=== PATIENT | female | born 1990 | race Caucasian/White ===

== ENCOUNTER 2020-12-08 10:08 | Emergency (ER) | payer OTHER, SELFPAY ==
--- NOTE | ~2020-12-08 | XR_ITS ---
EXAMINATION: XR ankle RT min 3V DATE: 12/08/2020 10:52 INDICATION: Right ankle pain. TECHNIQUE: 4 views of right ankle were obtained. COMPARISON: None. FINDINGS: Bone alignment is normal. No acute fracture. There is heterotopic ossification distal to la teral malleolus from old injury. Joint spaces are normal. IMPRESSION: 1. No acute fracture. Reviewed, dictated and finalized at location B. /ENDANGERED SPECIES SPECIALIST IMPRESSION: 1. No acute fracture.
--- NOTE | ~2020-12-08 | XR_ITS ---
EXAMINATION: XR foot RT min 3V DATE: 12/08/2020 10:52 INDICATION: Right foot injury and pain. TECHNIQUE: 4 views of right foot were obtained. COMPARISON: None. FINDINGS: There is moderate hallux valgus. No fracture. There is mild midfoot osteoarthritis. IMPRESSION: 1. Moderate hallux valgus. 2. Mild midfoot osteoarthritis. Reviewed, dictated and finalized at location B. DING TECHNICIAN
[2020-12-08 10:23] VITALS: BP 152/67; PULSE 92; RESP 20; TEMP 36.9; O2SAT 100
--- NOTE | 2020-12-08 10:24 | ED.LOWEXIN ---
HPI - Extremity Injury (Lower) General Chief Complaint: Extremity Injury, Lower Stated Complaint: Extremity Injury, Lower Time Seen by Provider: 12/08/20 10:25 Source: patient and RN notes reviewed History of Present Illness HPI Narrative: Patient is a 30-year-old female who presents the urgent care with complaints of right foot and ankle pain. 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 Patient states that the client ended up in the emergency room due to hitting her head. Patient states that she is unsure if the walker also folded on her right foot. Patient is complaining of right foot and right ankle pain. Denies of any other injuries from the fall. Denies of hitting her head. Patient states that she has fractured the right foot/ankle in the past. Denies of any use of pain medication prior to arrival. No other acute complaints. No acute distress noted. Patient aware of the plan of care. Some parts of this dictation were generated by voice recognition software and may contain typographical and/or grammatical inaccuracies. Related Data Home Medications Medication Instructions Recorded Confirmed clonazepam 0.5 mg PO DAILY 12/08/20 12/08/20 sertraline 75 mg PO DAILY 12/08/20 12/08/20 Allergies Allergy/AdvReac Type Severity Reaction Status Date / Time hydroxyzine Allergy Unknown Other Verified 12/08/20 10:35 nitrofurantoin Allergy Unknown hives Verified 12/08/20 10:35 shellfish derived Allergy Unknown Rash Verified 12/08/20 10:35 Review of Systems Review of Systems: Narrative: CONSTITUTIONAL: Denies fever, chills, or sweats. EYES: Denies visual changes, redness, or discharge. ENT: Denies rhinorrhea, congestion, sore throat, or otalgia. CARDIOVASCULAR: Denies chest pain, palpitations, or edema. RESPIRATORY: Denies cough or dyspnea. GASTROINTESTINAL: Denies abdominal pain, nausea, vomiting, or diarrhea. GENITOURINARY: Denies dysuria or hematuria. SKIN: Denies rash or itching. MUSCULOSKELETAL: Reports of right foot and ankle pain with right ankle swelling NEUROLOGIC: Denies headache, numbness, or weakness. All other systems reviewed are negative, except as documented in HPI. PMFSH Comments At the time of my signature, I reviewed and agree with the nursing past medical, surgical, social, and family history. There is no relevant family history pertinent to the patient complaint. Exam Narrative: Exam Narrative: GENERAL: This is a well-nourished, well-developed patient, in no apparent distress. HEAD: normocephalic, atraumatic. EYES: PERRL. Sclera clear/white. Vision is grossly intact. EARS: External ears normal NOSE: External nose normal with no obvious nasal discharge, nares without redness, no rhinorrhea. THROAT: Mucous membranes moist NECK: Neck supple SKIN: warm, intact with no suspicious lesions or rash, good texture and turgor. NEURO: awake, alert, and oriented to person, place and time. There were no obvious focal neurologic abnormalities. EXTREMITIES: Moderate edema/mild edema noted to lateral malleolus with moderate tenderness. Moderate tenderness/ecchymosis to the dorsal lateral aspect of the right foot. Positive strong right pedal pulse with capillary refill less than 2 seconds. Range of motion not tested due to pain. Reported pain exacerbated with any flexion or weightbearing Course Vital Signs Vital signs: Vital Signs Temperature 98.4 F 12/08/20 10:23 Pulse Rate 92 12/08/20 10:23 Respiratory Rate 20 12/08/20 10:23 Blood Pressure 152/67 H 12/08/20 10:23 Pulse Oximetry 100 12/08/20 10:23 Temperature 98.4 F 12/08/20 10:23 Pulse Rate 92 12/08/20 10:23 Respiratory Rate 20 12/08/20 10:23 Blood Pressure 152/67 H 12/08/20 10:23 Pulse Oximetry 100 12/08/20 10:23 Reviewed-patient is informed that they may have pre-hypertension or hypertension based on a blood pressure reading in the depa
== END 2020-12-08 11:15 | disposition home or self-care (01) ==
PROVIDERS: Emergency Provider Nurse Practitioner Family
DX: S93.401A Sprain of unspecified ligament of right ankle, initial encounter (principal); S96.911A Strain of unspecified muscle and tendon at ankle and foot level, right foot, initial encounter; W50.0XXA Accidental hit or strike by another person, initial encounter; Y99.0 Civilian activity done for income or pay; S90.31XA Contusion of right foot, initial encounter; F41.9 Anxiety disorder, unspecified; F32.9 Major depressive disorder, single episode, unspecified
CPT/HCPCS: 73610; 73630; 99213; G0463

== ENCOUNTER 2022-03-02 08:30 | Emergency (ER) | payer OTHER, SELFPAY ==
--- NOTE | ~2022-03-02 | XR_ITS ---
EXAMINATION: XR ankle LT min 3V EXAM DATE: 03/02/2022 09:00 INDICATION: Inversion Injury,Dorsal Lateral Tarsal Pain. TECHNIQUE: Left ankle frontal, lateral and oblique projections obtained and reviewed. There is no pr ior study for comparison. FINDINGS: The left ankle mortise appears intact. There are no acute fractures or dislocations ident ified. There is no subcutaneous gas. The soft tissue is unremarkable. There are no radiopaque for eign bodies. Mild left ankle osteoarthritis. IMPRESSION: No acute osseous findings. Reviewed, dictated and finalized at location B. IMPRESSION: No acute osseous findings.
[2022-03-02 08:47] VITALS: BP 121/74; PULSE 83; RESP 14; TEMP 36.8; O2SAT 100
--- NOTE | 2022-03-02 08:58 | ED.LOWEXIN ---
HPI - Extremity Injury (Lower) General Chief Complaint: Extremity Injury, Lower Stated Complaint: Left ankle injury Time Seen by Provider: 03/02/22 09:16 Source: patient and RN notes reviewed Mode of arrival: ambulatory Limitations: no limitations History of Present Illness HPI Narrative: 31-year-old female presents with concern for left ankle pain. Reports last week on she twisted the ankle. Reports she went to the emergency room where they did an x-ray that was negative. Reports she was using a brace given her by the emergency room that made the pain worse. Reports over the weekend she was walking on the ankle and the pain has since been worsening. She denies redness, warmth. Reports pain at rest. Reports pain worsening with flexion and extension of the ankle and weightbearing. She denies open skin rash. MD complaint: ankle injury Related Data Home Medications Medication Instructions Recorded Confirmed clonazepam 0.5 mg PO DAILY 12/08/20 12/08/20 sertraline [Zoloft] 50 mg PO DAILY 03/02/22 03/02/22 Allergies Allergy/AdvReac Type Severity Reaction Status Date / Time hydroxyzine Allergy Unknown Other Verified 03/02/22 09:14 nitrofurantoin Allergy Unknown hives Verified 03/02/22 09:14 shellfish derived Allergy Unknown Rash Verified 03/02/22 09:14 Review of Systems Review of Systems: CONSTITUTIONAL: Denies malaise, chills, sweats, or fever. SKIN: Denies rash or itching, open skin, laceration, abrasion, redness, warmth MUSCULOSKELETAL: Reports left ankle swelling and pain NEUROLOGIC: Denies numbness, weakness All systems reviewed & are unremarkable except as noted in HPI and below PMFSH Comments At time of signature, agree with nursing past medical, surgical, social and family history. There is no relevant family history pertinent to the presenting complaint Exam Narrative: GENERAL: Well-appearing, well-nourished, and in no acute distress. HEAD: Normocephalic, atraumatic. EYES: PERRLA, conjunctivae clear NECK: Supple. CHEST: Speaks in full sentences. No respiratory distress. HEART: Regular rate and rhythm. Normal and equal peripheral pulses. EXTREMITIES: Left ankle, foot, digits have normal strength and sensation, normal range of motion. Mild lateral edema, no ecchymosis. 5/5 strength with ankle and digit flexion and extension. Normal sensation with sensitivity to light touch and pain. Lateral tenderness. No open wounds, no skin tenting, no devitalized tissue or atrophy, no trophic changes, no obvious deformity, alignment normal, nearby joints and structures intact. Distal pulses palpable and equal bilaterally, skin warm, dry, pink. Capillary refill less than 3 seconds. SKIN: Warm, dry, no rash. NEURO: Alert and oriented x3. PSYCH: Normal mood and affect Course Course Emergency Course: Patient is aware of diagnosis, understands and agrees to treatment plan. Anticipatory guidance given. Patient agrees to follow-up as directed and is aware of reasons to seek care at the emergency department. Portions of this record may have been created with voice recognition software Level of Care: Express Care Visit Vital Signs Vital signs: Reviewed. MDM - Extremity Injury (Lower) MDM Narrative Medical decision making narrative: Patients injury and pain is consistent with musculoskeletal etiology. No signs of neurological or vascular compromise on exam. Compartments and tissues are soft without signs of compartment syndrome. Pain is felt appropriate for further evaluation on an outpatient basis. Imaging Data My impression: Images reviewed, interpreted by radiologist, agree, see report. Radiologist's impression: EXAMINATION: XR ankle LT min 3V EXAM DATE: 03/02/2022 09:00 INDICATION: Inversion Injury,Dorsal Lateral Tarsal Pain. TECHNIQUE: Left ankle frontal, lateral and oblique projections obtained and reviewed. There is no prior study for comparison. FINDINGS: The left ankle mortise appears intact. There are
== END 2022-03-02 09:29 | disposition home or self-care (01) ==
PROVIDERS: Emergency Provider Nurse Practitioner
DX: S93.402A Sprain of unspecified ligament of left ankle, initial encounter (principal); S96.912A Strain of unspecified muscle and tendon at ankle and foot level, left foot, initial encounter; X50.9XXA Other and unspecified overexertion or strenuous movements or postures, initial encounter; F41.9 Anxiety disorder, unspecified; F32.A Depression, unspecified
CPT/HCPCS: 73610; 99213; G0463

== ENCOUNTER 2022-04-01 09:12 | Emergency (ER) | payer OTHER, SELFPAY ==
--- NOTE | ~2022-04-01 | XR_ITS ---
EXAMINATION: XR finger 5th RT min 2V INDICATION: Right fifth finger pain TECHNIQUE: Four views of the right fifth finger are obtained. COMPARISON: None available FINDINGS: There is a questionable oblique fracture at the palmar base of the fifth middle phalanx. Th ere is flexion of the finger at the proximal interphalangeal joint. Mild soft tissue swelling is pres ent. IMPRESSION: 1. Questionable oblique fracture at the palmar base of the fifth middle phalanx. Reviewed, dictated and finalized at location A. IMPRESSION: 1. Questionable oblique fracture at the palmar base of the fifth middle phalanx .
[2022-04-01 09:18] VITALS: BP 123/80; PULSE 93; RESP 16; TEMP 37.2; O2SAT 99
--- NOTE | 2022-04-01 09:25 | ED.UPPEXIN ---
HPI - Extremity Injury (Upper) General Chief Complaint: Extremity Injury, Upper Stated Complaint: right hand injury Time Seen by Provider: 04/01/22 09:25 Source: patient, RN notes reviewed and old records reviewed Mode of arrival: ambulatory Limitations: no limitations History of Present Illness HPI narrative: 31 year old female presents to express care with complaints of injury to right 5th finger at work within past 30 minutes prior to arrival at clinic. 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 Patient is presently on antibiotics of Keflex, and Bactrim from ER visit on 03/27/2022 and she also received 15 tabs of [place] at that time also. Patient verbalizes point tenderness to middle aspect of 5th finger knight aspect, no active bleeding noted, circulation and sensation intact to right 5th finger mobility impaired due to pain. MD complaint: injury to: right and finger (5th finger) Onset (ago): minute(s) (within past 30 minutes) Other Extremity Injury: Right: fingers ( 5th finger) Other injuries: none Handedness: right Place: work Severity: severe Severity scale (1-10): 8 Context: direct blow Related Data Home Medications Medication Instructions Recorded Confirmed sertraline [Zoloft] 50 mg PO DAILY 03/02/22 03/02/22 cephalexin 500 mg PO TID 04/01/22 04/01/22 clonidine HCl 0.1 mg PO BID 04/01/22 04/01/22 fluticasone propionate 50 mcg INTRANASAL DAILY 04/01/22 04/01/22 hydrocodone-acetaminophen 1 tablet PO Q4H PRN 04/01/22 04/01/22 propranolol 20 mg PO TID 04/01/22 04/01/22 rizatriptan 10 mg PO DAILY PRN 04/01/22 04/01/22 sulfamethoxazole-trimethoprim 1 tablet PO BID 04/01/22 04/01/22 Allergies Allergy/AdvReac Type Severity Reaction Status Date / Time hydroxyzine Allergy Unknown Other Verified 04/01/22 09:25 nitrofurantoin Allergy Unknown hives Verified 04/01/22 09:25 shellfish derived Allergy Unknown Rash Verified 04/01/22 09:25 Review of Systems Review of Systems: CONSTITUTIONAL: Denies fever, chills, or sweats. EYES: Denies visual changes, redness, or discharge. ENT: Denies rhinorrhea, congestion, sore throat, or otalgia. CARDIOVASCULAR: Denies chest pain, palpitations, or edema. RESPIRATORY: Denies cough or dyspnea. GASTROINTESTINAL: Denies abdominal pain, nausea, vomiting, or diarrhea. GENITOURINARY: Denies dysuria or hematuria. SKIN: Denies rash or itching. MUSCULOSKELETAL: Chronic back pain, right 5th finger pain, or myalgia. NEUROLOGIC: Denies headache, numbness, or weakness. PSYCHIATRIC: Positive for anxiety or depression. All systems reviewed & are unremarkable except as noted in HPI and below PMFSH Past Medical History Medical History (Updated 04/01/22 @ 10:08 by Shu Otto NP) Anxiety and depression Back pain Fracture of pelvis Hx of migraines Surgical History Surgical History (Updated 04/01/22 @ 09:35 by Shu Otto NP) H/O tubal ligation History of cholecystectomy Social History Social History (Updated 04/01/22 @ 09:55 by Shu Otto NP) Smoking packs per day: 0.5 Smoking cigarettes per day: 10.0 Years smoked: 21 Smoking pack-years: 10.50 Smoking status: Current every day smoker Tobacco type: cigarettes Alcohol intake: current Alcohol use details: social Substance use type: marijuana Last use: social Living arrangements: with family Gender identity (if verbalized by the patient): Female Comments At time of signature, agree with nursing past medical, surgical, social and family history. There is no relevant family history pertinent to the presenting complaint Exam Narrative: GENERAL: Well-appearing, well-nourished, and in no acute distress.
[2022-04-01] MEDS: TETANUS,DIPHTHERIA,AC PERTUSSIS ADULT (0.5 ML) BOOSTRIX IM (09:51)
== END 2022-04-01 10:19 | disposition home or self-care (01) ==
PROVIDERS: Emergency Provider Registered Nurse
DX: S62.656A Nondisplaced fracture of middle phalanx of right little finger, initial encounter for closed fracture (principal); X58.XXXA Exposure to other specified factors, initial encounter; Z23 Encounter for immunization; F17.210 Nicotine dependence, cigarettes, uncomplicated; F12.90 Cannabis use, unspecified, uncomplicated
CPT/HCPCS: 29130; 73140; 90471; 90715; 99214; G0463

== ENCOUNTER 2022-12-28 17:48 | Emergency (ER) | payer OTHER, SELFPAY ==
[2022-12-28 17:54] VITALS: BP 119/66; PULSE 95; RESP 14; TEMP 36.8; O2SAT 100
--- NOTE | 2022-12-28 18:20 | ED.URI ---
HPI - URI/Sore Throat General Chief Complaint: Nausea/Vomiting/Diarrhea Stated Complaint: Vomiting/Fever Time Seen by Provider: 12/28/22 18:05 Source: patient and RN notes reviewed Mode of arrival: ambulatory Limitations: no limitations History of Present Illness HPI Narrative: 32-year-old female presents with concern for general malaise, fever, runny nose, stuffy nose, mild cough, diarrhea. Reports she vomited today. She denies taking any medications [id number] for her symptoms. She denies any known sick contacts. MD elicited complaint: cough and sore throat Related Data Home Medications Medication Instructions Recorded Confirmed sertraline 50 mg tablet (Zoloft) 50 mg PO DAILY 03/02/22 12/28/22 clonidine HCl 0.1 mg tablet 0.1 mg PO BID 04/01/22 12/28/22 Allergies Allergy/AdvReac Type Severity Reaction Status Date / Time hydroxyzine Allergy Unknown Other Verified 12/28/22 18:26 nitrofurantoin Allergy Unknown hives Verified 12/28/22 18:26 shellfish derived Allergy Unknown Rash Verified 12/28/22 18:26 Review of Systems Review of Systems: CONSTITUTIONAL: Reports malaise, fever. EYES: Denies visual changes, redness, or discharge. ENT: Reports rhinorrhea, congestion, sore throat. Denies sinus pain, otalgia CARDIOVASCULAR: Denies chest pain, palpitations, or edema. RESPIRATORY: Reports mild cough. Denies dyspnea. GASTROINTESTINAL: Denies abdominal pain. Reports nausea, vomiting, diarrhea SKIN: Denies rash or itching. MUSCULOSKELETAL: Denies myalgia. NEUROLOGIC: Denies headache. All systems reviewed & are unremarkable except as noted in HPI and below PMFSH Past Medical History Medical History (Updated 12/28/22 @ 18:28 by Princess Santos NP) Anxiety and depression Back pain Fracture of pelvis Hx of migraines Surgical History Surgical History (Updated 04/01/22 @ 09:35 by Shu Otto NP) H/O tubal ligation History of cholecystectomy Social History Social History (Updated 04/01/22 @ 09:55 by Shu Otto NP) Smoking packs per day: 0.5 Smoking cigarettes per day: 10.0 Years smoked: 21 Smoking pack-years: 10.50 Smoking status: Current every day smoker Tobacco type: cigarettes Alcohol intake: current Alcohol use details: social Substance use type: marijuana Last use: social Living arrangements: with family Gender identity (if verbalized by the patient): Female Comments At time of signature, agree with nursing past medical, surgical, social and family history. There is no relevant family history pertinent to the presenting complaint Exam Narrative: GENERAL: Well-appearing, well-nourished, and in no acute distress. HEAD: Normocephalic EYES: PERRLA, conjunctivae clear ENT: Nares clear, turbinates edematous and erythematous, clear discharge. Mucous membranes moist. TM pearly caballero with dull light reflex bilaterally; no tragal tenderness. Oropharynx not erythematous without lesions. Tonsils not enlarged and without exudate, no drooling, no hoarseness, no trismus, uvula midline. NECK: Supple. No lymphadenopathy CHEST: Clear to auscultation, breath sounds equal. No wheezing, rhonchi, rales, or stridor. No respiratory distress, speaks in full sentences. HEART: Regular rate and rhythm. No murmur heard. SKIN: Warm, dry, no rash. NEURO: Alert and oriented x3. PSYCH: Normal mood and affect Course Course Emergency Course: Patient is aware of diagnosis, understands and agrees to treatment plan. Anticipatory guidance given. Patient agrees to follow-up as directed and is aware of reasons to seek care at the emergency department. Portions of this record may have been created with voice recognition software Level of Care: Express Care Visit Vital Signs Vital signs: Vital Signs Temperature 98.3 F 12/28/22 17:54 Pulse Rate 95 12/28/22 17:54 Respiratory Rate 14 12/28/22 17:54 Blood Pressure 119/66 12/28/22 17:54 Pulse Oximetry 100 12/28/22 17:54 Oxygen De
== END 2022-12-28 18:30 | disposition home or self-care (01) ==
PROVIDERS: Emergency Provider Nurse Practitioner; PCP Family Medicine
DX: B34.9 Viral infection, unspecified (principal); F17.210 Nicotine dependence, cigarettes, uncomplicated; Z20.822 Contact with and (suspected) exposure to COVID-19
CPT/HCPCS: 81003; 87081; 87086; 87426; 87804; 87880; 99213; C9803; G0463

== ENCOUNTER 2023-01-14 08:05 | Emergency (ER) | payer OTHER, SELFPAY ==
[2023-01-14 08:14] VITALS: BP 146/69; PULSE 114; RESP 20; TEMP 37.1; O2SAT 97
--- NOTE | 2023-01-14 08:22 | ED.URI ---
HPI - URI/Sore Throat General Chief Complaint: Upper Respiratory Infection Stated Complaint: sore throat Time Seen by Provider: 01/14/23 08:25 History of Present Illness HPI Narrative: Patient presents with a sore throat. Patient states sore throat started yesterday denies any trouble swallowing no drooling. No fever no cough no other symptoms reported. Related Data Home Medications Medication Instructions Recorded Confirmed sertraline 50 mg tablet (Zoloft) 50 mg PO DAILY 03/02/22 01/14/23 clonidine HCl 0.1 mg tablet 0.1 mg PO BID 04/01/22 01/14/23 Allergies Allergy/AdvReac Type Severity Reaction Status Date / Time hydroxyzine Allergy Unknown Other Verified 01/14/23 08:16 nitrofurantoin Allergy Unknown hives Verified 01/14/23 08:16 shellfish derived Allergy Unknown Rash Verified 01/14/23 08:16 Review of Systems Review of Systems: CONSTITUTIONAL: Denies fever, chills, or sweats. EYES: Denies visual changes, redness, or discharge. ENT: Denies rhinorrhea, congestion, sore throat, or otalgia. CARDIOVASCULAR: Denies chest pain, palpitations, or edema. RESPIRATORY: Denies cough or dyspnea. GASTROINTESTINAL: Denies abdominal pain, nausea, vomiting, or diarrhea. GENITOURINARY: Denies dysuria or hematuria. SKIN: Denies rash or itching. MUSCULOSKELETAL: Denies back pain, joint pain, or myalgia. NEUROLOGIC: Denies headache, numbness, or weakness. PSYCHIATRIC: Denies anxiety or depression. [facility] Past Medical History Medical History (Updated 01/14/23 @ 08:28 by ANIL Gracia) Anxiety and depression Back pain Fracture of pelvis Hx of migraines Surgical History Surgical History (Updated 04/01/22 @ 09:35 by Shu Otto NP) H/O tubal ligation History of cholecystectomy Social History Social History (Updated 04/01/22 @ 09:55 by Shu Otto NP) Smoking packs per day: 0.5 Smoking cigarettes per day: 10.0 Years smoked: 21 Smoking pack-years: 10.50 Smoking status: Current every day smoker Tobacco type: cigarettes Alcohol intake: current Alcohol use details: social Substance use type: marijuana Last use: social Living arrangements: with family Gender identity (if verbalized by the patient): Female Comments At time of signature, agree with nursing past medical, surgical, social and family history. There is no relevant family history pertinent to the presenting complaint Exam Narrative: GENERAL: Well-appearing, well-nourished, and in no acute distress. HEAD: Normocephalic, atraumatic. EYES: PERRLA and EOMI. ENT: Nares clear, no rhinorrhea or epistaxis. Mucous membranes moist. Moderate pharyngeal erythema with exudate bilateral no trismus no drooling able to open mouth fully NECK: Supple. CHEST: Clear to auscultation. No respiratory distress. HEART: Regular rate and rhythm. No murmur heard. Normal peripheral pulses. ABDOMEN: Soft, nontender, nondistended, normal active bowel sounds. EXTREMITIES: Normal range of motion. No edema. SKIN: Warm, dry, no rash. NEURO: No focal deficits. Alert and oriented x3. Jose Coma Scale Eye Opening: Spontaneous 4 [place] Coma Scale Motor: Obeys Commands 6 [place] Coma Scale Verbal: Oriented 5 [place] Coma Scale Total 15 Course Course Level of Care: Express Care Visit MDM - URI/Sore Throat Differential Diagnosis Differential diagnosis: Likely upper respiratory infection, croup, otitis media, sinusitis, viral infection, bronchitis, influenza and pharyngitis Discharge Plan Discharge Clinical Impression: Pharyngitis Patient Disposition: Home, Self-Care Condition: Stable Instructions: Antibiotic Form, Pharyngitis (ED), Strep Throat (DC) Additional Instructions: Increase fluids especially juices and water [id number] cough and cold medicine of your choice for your symptoms Salt water gargles, throat lozenges or throat sprays as desired change toothbrush in 3-5 days Antibiotic as directed--finished the medication
== END 2023-01-14 08:34 | disposition home or self-care (01) ==
PROVIDERS: Emergency Provider Nurse Practitioner Family; PCP Family Medicine
DX: J02.9 Acute pharyngitis, unspecified (principal); F17.210 Nicotine dependence, cigarettes, uncomplicated; F12.90 Cannabis use, unspecified, uncomplicated; F41.9 Anxiety disorder, unspecified; F32.A Depression, unspecified
CPT/HCPCS: 87880; 99213; G0463

== ENCOUNTER 2023-04-19 15:18 | Emergency (ER) | payer OTHER, SELFPAY ==
--- NOTE | 2023-04-19 15:24 | ED.URI ---
HPI - URI/Sore Throat General Stated Complaint: [place] seed stuck in throat Time Seen by Provider: 04/19/23 15:55 Source: patient and RN notes reviewed Mode of arrival: ambulatory Limitations: no limitations History of Present Illness HPI Narrative: 32-year-old female presents with concern for lost voice, swallowing a sunflower seed. She reports earlier today she was eating sunflower seeds when she may have had a piece a shell on one that scratched her throat. She reports about 20 minutes later her voice became hoarse. She reports after that she drank water, ate bread. She reports she swallow those without issue. She denies trouble breathing. MD elicited complaint: sore throat Related Data Home Medications Medication Instructions Recorded Confirmed sertraline 50 mg tablet (Zoloft) 50 mg PO DAILY 03/02/22 04/19/23 clonidine HCl 0.1 mg tablet 0.1 mg PO BID 04/01/22 04/19/23 albuterol sulfate 90 mcg/actuation 2 inh inhalation DIRECTED 04/19/23 04/19/23 aerosol inhaler diazepam 10 mg tablet 10 mg PO DIRECTED 04/19/23 04/19/23 ergocalciferol (vitamin D2) 1,250 1,250 mcg PO DIRECTED 04/19/23 04/19/23 mcg (50,000 unit) capsule Allergies Allergy/AdvReac Type Severity Reaction Status Date / Time hydroxyzine Allergy Unknown Other Verified 04/19/23 15:38 nitrofurantoin Allergy Unknown hives Verified 04/19/23 15:38 shellfish derived Allergy Unknown Rash Verified 04/19/23 15:38 Review of Systems Review of Systems: CONSTITUTIONAL: Denies malaise, chills, sweats, or fever. EYES: Denies visual changes, redness, or discharge. ENT: Denies rhinorrhea, congestion, sinus pain, otalgia and sore throat. Reports hoarse voice CARDIOVASCULAR: Denies chest pain, palpitations, or edema. RESPIRATORY: Denies cough. Denies dyspnea. GASTROINTESTINAL: Denies abdominal pain, nausea, vomiting, diarrhea SKIN: Denies rash or itching. MUSCULOSKELETAL: Denies myalgia. NEUROLOGIC: Denies headache. All systems reviewed & are unremarkable except as noted in HPI and below PMFSH Past Medical History Medical History (Updated 04/19/23 @ 16:05 by Princess Santos NP) Anxiety and depression Back pain Fracture of pelvis Hx of migraines Surgical History Surgical History (Updated 04/01/22 @ 09:35 by Shu Otto NP) H/O tubal ligation History of cholecystectomy Social History Social History (Updated 04/01/22 @ 09:55 by Shu Otto NP) Smoking packs per day: 0.5 Smoking cigarettes per day: 10.0 Years smoked: 21 Smoking pack-years: 10.50 Smoking status: Current every day smoker Tobacco type: cigarettes Alcohol intake: current Alcohol use details: social Substance use type: marijuana Last use: social Living arrangements: with family Gender identity (if verbalized by the patient): Female Comments At time of signature, agree with nursing past medical, surgical, social and family history. There is no relevant family history pertinent to the presenting complaint Exam Narrative: GENERAL: Well-appearing, well-nourished, and in no acute distress. HEAD: Normocephalic EYES: PERRLA, conjunctivae clear ENT: Nares clear. Mucous membranes moist. Oropharynx not erythematous without lesions. Tonsils not enlarged and without exudate, no drooling, no trismus, uvula midline, no foreign body visible. Mild hoarse voice NECK: Supple. No lymphadenopathy CHEST: Clear to auscultation, breath sounds equal. No wheezing or stridor. No respiratory distress, speaks in full sentences. HEART: Regular rate and rhythm. No murmur heard. SKIN: Warm, dry, no rash. NEURO: Alert and oriented x3. PSYCH: Normal mood and affect Course Course Emergency Course: Patient is aware of diagnosis, understands and agrees to treatment plan. Anticipatory guidance given. Patient agrees to follow-up as directed and is aware of reasons to seek care at the emergency department. Portions of this record may have been created with
[2023-04-19 15:28] VITALS: BP 129/71; PULSE 80; RESP 16; TEMP 36.7; O2SAT 100
== END 2023-04-19 16:07 | disposition home or self-care (01) ==
PROVIDERS: Emergency Provider Nurse Practitioner; PCP Family Medicine
DX: R07.0 Pain in throat (principal); F17.210 Nicotine dependence, cigarettes, uncomplicated; F41.9 Anxiety disorder, unspecified; F32.A Depression, unspecified
CPT/HCPCS: 99211; G0463

== ENCOUNTER 2023-05-27 14:11 | Emergency (ER) | payer OTHER, SELFPAY ==
[2023-05-27 14:15] VITALS: BP 124/69; PULSE 84; RESP 20; TEMP 36.8; O2SAT 100
--- NOTE | 2023-05-27 15:20 | ED.GENADULT ---
HPI - General Adult General Chief complaint: Unspecified Stated complaint: Mouth Problem Source: patient Mode of arrival: ambulatory Limitations: no limitations History of Present Illness HPI narrative: Patient presents for evaluation and treatment of a swollen lymph node for the past 2-3 days. It is in the right submandibular region. She reports tenderness underneath her tongue on the right side. She does experience xerostomia. She denies any sore throat or dental pain. No fever, chills, nausea, vomiting. She smokes about 1/2 ppd. Related Data Home Medications Medication Instructions Recorded Confirmed sertraline 50 mg tablet (Zoloft) 50 mg PO DAILY 03/02/22 05/27/23 clonidine HCl 0.1 mg tablet 0.1 mg PO BID PRN Anxiety 04/01/22 05/27/23 atogepant 60 mg tablet (Qulipta) 60 mg PO DAILY 05/27/23 05/27/23 bhbjvgl-quphtxwmhj-UFJ-caffeine 30 1 cap PO Q4-6H PRN Migraine 05/27/23 05/27/23 mg-50 mg-325 mg-40 mg capsule Headache (Butalbital Compound with Codeine) cyanocobalamin (vitamin B-12) 1,000 mcg PO DAILY 05/27/23 05/27/23 1,000 mcg tablet ergocalciferol (vitamin D2) 1,250 1,250 mcg PO WEEKLY 05/27/23 05/27/23 mcg (50,000 unit) capsule ubrogepant 100 mg tablet (Ubrelvy) 100 mg PO ONCE 05/27/23 05/27/23 Allergies Allergy/AdvReac Type Severity Reaction Status Date / Time hydroxyzine Allergy Unknown Other Verified 05/27/23 14:36 nitrofurantoin Allergy Unknown hives Verified 05/27/23 14:36 shellfish derived Allergy Unknown Rash Verified 05/27/23 14:36 Review of Systems Review of Systems: CONSTITUTIONAL: Denies fever, chills, or sweats. EYES: Denies visual changes, redness, or discharge. ENT: Reports right submandibular lymphadenopathy with right sublingual tenderness. Reports xerostomia. Denies sore throat and ear pain. CARDIOVASCULAR: Denies chest pain, palpitations, or edema. RESPIRATORY: Denies cough or dyspnea. GASTROINTESTINAL: Denies abdominal pain, nausea, vomiting, or diarrhea. GENITOURINARY: Denies dysuria or hematuria. SKIN: Denies rash or itching. MUSCULOSKELETAL: Denies back pain, joint pain, or myalgia. NEUROLOGIC: Denies headache, numbness, dizziness, or weakness. PSYCHIATRIC: Denies anxiety or depression. [facility] Past Medical History Medical History Anxiety and depression Back pain Fracture of pelvis Hx of migraines Surgical History Surgical History H/O tubal ligation History of cholecystectomy Social History Social History Smoking packs per day: 0.5 Smoking cigarettes per day: 10.0 Years smoked: 21 Smoking pack-years: 10.50 Smoking status: Current every day smoker Tobacco type: cigarettes Alcohol intake: current Alcohol use details: social Substance use type: marijuana Last use: social Living arrangements: with family Gender identity (if verbalized by the patient): Female Exam Narrative: GENERAL: Well-appearing, well-nourished, and in no acute distress. HEAD: Normocephalic, atraumatic. EYES: PERRLA and EOMI. ENT: Nares clear, no rhinorrhea or epistaxis. Mucous membranes moist. Oropharynx without tonsillar hypertrophy exudate or other lesions. There is right sublingual tenderness. bilateral TMs pearly caballero nonbulging NECK: Supple. Right submandibular swelling with associated tenderness. No carotid bruits or JVD CHEST: Clear to auscultation. No respiratory distress. No wheezes rales or rhonchi HEART: Regular rate and rhythm. No murmur heard. Normal peripheral pulses. ABDOMEN: Soft, nontender, nondistended, normal active bowel sounds. EXTREMITIES: Normal range of motion. No edema. SKIN: Warm, dry, no rash. NEURO: No focal deficits. Alert and oriented x3. PSYCH: Normal mood and affect. Course Course Emergency Course: This is a 33-year-old female who presented f
== END 2023-05-27 15:24 | disposition home or self-care (01) ==
PROVIDERS: Emergency Provider Nurse Practitioner; PCP Family Medicine
DX: K11.20 Sialoadenitis, unspecified (principal); F17.210 Nicotine dependence, cigarettes, uncomplicated; F41.9 Anxiety disorder, unspecified; F32.A Depression, unspecified
CPT/HCPCS: 87081; 87880; 99213; G0463

== ENCOUNTER 2024-03-17 08:07 | Emergency (ER) | payer OTHER, SELFPAY ==
--- NOTE | ~2024-03-17 | CT_ITS ---
EXAMINATION: CT abdomen pelvis wo con DATE: 03/17/2024 09:05 INDICATION: Right lower back and flank pain starting last evening. Nausea, emesis. TECHNIQUE: Computed tomography (CT) of the abdomen and pelvis was performed without intravenous contr ast. Automated exposure control and iterative reconstruction technique were employed. Exam dose: 159 4.53 mGy-cm total exam DLP. COMPARISON: None. FINDINGS: Mild atelectasis in the lower lung zones. No consolidation. Normal heart size. No pericardi al or pleural effusion. Status post cholecystectomy. The liver, spleen, pancreas, adrenal glands are unremarkable. No renal s pace occupying mass lesion is noted. 3.5 mm distal right ureteral calculus with mild right hydroureteronephrosis. No other urinary tract c alculus is noted. Normal caliber of the abdominal aorta. No intraperitoneal or retroperitoneal or pelvic mass lesion or adenopathy or ascites. The uterus, adnexal areas and relatively evacuated urinary bladder are unremarkable. Normal appendix. No bowel obstruction, bowel wall thickening, pneumatosis or intraperitoneal free air . Small fat-containing umbilical hernia. Old healed fractures of the right sacrum and right superior and inferior pubic rami. No suspicious osteolytic or osteoblastic lesions. IMPRESSION: 3.5 mm distal right ureter calculus with mild right hydroureteronephrosis Reviewed, dictated and finalized at [facility]. Reviewed, dictated and finalized at [facility]. IMPRESSION: 3.5 mm distal right ureter calculus with mild right hydroureterone phrosis
[2024-03-17 08:22] VITALS: BP 136/76; PULSE 63; RESP 15; TEMP 36.6; O2SAT 99
--- NOTE | 2024-03-17 08:37 | ED.BACK ---
HPI - Back Pain/Injury General Chief Complaint: Back Pain/Injury Stated Complaint: back pain/kidney stone Time Seen by Provider: 03/17/24 08:13 History of Present Illness HPI Narrative: 33-year-old female history UTI pain a kidney stones presenting to the emergency department for evaluation of right flank pain. Patient states last night began having right back and right flank pain. Patient does report associated nausea and vomiting. Patient states she is having some burning with urination. At time of evaluation patient is uncomfortable appearing Related Data Home Medications Medication Instructions Recorded Confirmed sertraline 50 mg tablet (Zoloft) 50 mg PO DAILY 03/02/22 05/27/23 clonidine HCl 0.1 mg tablet 0.1 mg PO BID PRN Anxiety 04/01/22 05/27/23 atogepant 60 mg tablet (Qulipta) 60 mg PO DAILY 05/27/23 05/27/23 jnovcxn-vtvpnozevf-MTB-caffeine 30 1 cap PO Q4-6H PRN Migraine 05/27/23 05/27/23 mg-50 mg-325 mg-40 mg capsule Headache (Butalbital Compound with Codeine) cyanocobalamin (vitamin B-12) 1,000 mcg PO DAILY 05/27/23 05/27/23 1,000 mcg tablet ergocalciferol (vitamin D2) 1,250 1,250 mcg PO WEEKLY 05/27/23 05/27/23 mcg (50,000 unit) capsule ubrogepant 100 mg tablet (Ubrelvy) 100 mg PO ONCE 05/27/23 05/27/23 Allergies Allergy/AdvReac Type Severity Reaction Status Date / Time hydroxyzine Allergy Unknown Other Verified 03/17/24 08:10 nitrofurantoin Allergy Unknown hives Verified 03/17/24 08:10 shellfish derived Allergy Unknown Rash Verified 03/17/24 08:10 Review of Systems Review of Systems: All systems reviewed & are unremarkable except as noted in HPI and below PMFSH Past Medical History Medical History Anxiety and depression Back pain Fracture of pelvis Hx of migraines Surgical History Surgical History H/O tubal ligation History of cholecystectomy Social History Social History Smoking packs per day: 0.5 Smoking cigarettes per day: 10.0 Years smoked: 21 Smoking pack-years: 10.50 Smoking status: Current every day smoker Tobacco type: cigarettes Alcohol intake: current Alcohol use details: social Substance use type: marijuana Last use: social Living arrangements: with family Gender identity (if verbalized by the patient): Female Exam Narrative: APPEARANCE: Uncomfortable appearing HEAD: normocephalic, atraumatic. EYES: PERRLA/EOMI, conjunctivae clear. NOSE: Normal no drainage EARS:TMS clear with good light reflex. THROAT: Pharynx clear, no exudate. NECK: Supple. No adenopathy, no masses. RESPIRATORY: Airway patent, respirations nonlabored. Clear to auscultation bilaterally, no rales, rhonchi, wheezing. CARDIOVASCULAR: Regular rate and rhythm without murmurs rubs or gallops. ABDOMINAL: Soft, nontender, nondistended, normal bowel sounds MUSCULOSKELETAL: Moves all extremities. Strength/ROM intact, No edema, No calf tenderness. NEURO: Alert. Cranial nerves II through XII intact. Good gait. Good coordination SKIN: Warm, dry. Normal Color Course Vital Signs Vital signs: Vital Signs Temperature 97.9 F 03/17/24 08:22 Pulse Rate 63 03/17/24 08:22 Respiratory Rate 15 03/17/24 08:22 Blood Pressure 136/76 03/17/24 08:22 Pulse Oximetry 99 03/17/24 08:22 Temperature 97.9 F 03/17/24 08:22 Pulse Rate 56 L 03/17/24 10:19 Respiratory Rate 15 03/17/24 10:19 Blood Pressure 117/54 L 03/17/24 10:19 Pulse Oximetry 99 03/17/24 10:19 MDM - Back Pain/Injury MDM Narrative Medical decision making narrative: 33-year-old female presenting to the emergency department for evaluation of increased right flank pain that patient is concern for a kidney stone. Patient is also reporting symptoms of a UTI. Patient was started on IV fluids and provided IV medicati
[2024-03-17 08:52] LABS: Appearance Urine Cloudy (Clear); Bacteria Urine 1+ /hpf; Bilirubin Urine 1+ (Negative); Blood Urine 3+ (Negative); Glucose Urine UA Negative (Negative); Ketones Urine Negative (Negative); Leukocyte Esterase Ur 1+ LEU/UL (Negative); Mucus Urine Present /lpf; Nitrate Urine Negative (Negative); Non Pathogenic Casts 0-2; Protein Urine 1+ mg/dL (Negative); RBC Urine >100 /hpf (0-2); Squamous Epithelial Cell Urine Moderate /hpf (Few)
[2024-03-17 08:53] LABS: Add Urine Microscopic? YES; Color Urine Dark Yellow (Yellow)
[2024-03-17] MEDS: ONDANSETRON INJ 4 MG/2 ML VIAL IV PUSH (08:54)
[2024-03-17] MEDS: HYDROmorphone HCL INJ (*CRX) 1 MG/ML SYR IV PUSH (08:54)
[2024-03-17 08:59] LABS: Basophils Absolute Auto 0.1 K/mm3 (0.0-0.1); Basophils Percent Auto 0.7 % (0.2-1.2); Eosinophils Absolute Auto 0.2 K/mm3 (0-0.3); Eosinophils Percent Auto 2.2 % (0-4.4); Hemoglobin 15.6 g/dL (12.0-15.0); Immature Granulocyte Absolute 0.01 K/mm3 (0.00-0.031); Immature Granulocyte Percent A 0.1 % (0-0.5); Lymphocytes Absolute Auto 1.79 K/mm3 (0.9-3.2); Lymphocytes Percent Auto 24.4 % (18.3-44.2); Mean Corpuscular HGB Conc 33.9 g/dl (32-36); Mean Corpuscular Hemoglobin 31.1 pg (26-34); Mean Corpuscular Volume 91.6 fl (80-100); Mean Platelet Volume 9.2 fl (7.4-10.4); Monocytes Absolute Auto 0.5 K/mm3 (0.1-0.6); Monocytes Percent Auto 7.1 % (2.6-8.5); Neutrophils Absolute Auto 4.8 K/mm3 (1.3-6.7); Neutrophils Percent Auto 65.5 % (45.5-73.1); Platelet Count Result 298 k/mm3 (150-375); Red Blood Count 5.02 M/mm3 (4.2-5.4); Red Cell Distribution Width 12.7 % (11.5-14.5); White Blood Count 7.3 K/mm3 (4.5-10.0)
[2024-03-17 09:22] LABS: Lactic Acid Reflex 0.9 mmol/L (0.7-2.0)
[2024-03-17 09:24] LABS: Alanine Aminotransferase 16 U/L (6-35); Albumin Level 4.2 g/dL (3.5-5.1); Alkaline Phosphatase 58 U/L (38-126); Anion Gap 8 mmol/L (4-12); Aspartate Amino Transferase 23 U/L (14-36); Blood Urea Nitrogen 14 mg/dL (7-17); Calcium 9.1 mg/dL (8.4-10.2); Carbon Dioxide 22 mmol/L (22-30); Chloride 111 mmol/L (98-107); Estimated CRCL calculation 112 ml/min; Estimated Glomerular Filt Rate > 60; Glucose 103 mg/dL (65-110); Sodium 141 mmol/L (137-145)
[2024-03-17] MEDS: HYDROcodone/acetaminophen (*CRX) 5-325 MG TABLET 1 TAB PO (10:18)
[2024-03-17] MEDS: TAMSULOSIN HCL 0.4 MG CAPSULE PO (10:18)
[2024-03-17] MEDS: KETOROLAC 15 MG/ML VIAL (*BKC) IV PUSH (10:18)
[2024-03-17 10:19] VITALS: BP 117/54; PULSE 56; RESP 15; O2SAT 99
== END 2024-03-17 10:26 | disposition home or self-care (01) ==
PROVIDERS: Emergency Provider Emergency Medicine
DX: N13.2 Hydronephrosis with renal and ureteral calculous obstruction (principal); F41.9 Anxiety disorder, unspecified; F32.A Depression, unspecified; Z90.49 Acquired absence of other specified parts of digestive tract; F17.210 Nicotine dependence, cigarettes, uncomplicated
CPT/HCPCS: 36415; 74176; 80053; 81001; 81025; 83605; 85025; 87086; 87088; 96374; 96375; 99284; A9270; J1170; J1885; J2405

== ENCOUNTER 2024-04-30 13:33 | Emergency (ER) | payer OTHER, SELFPAY ==
[2024-04-30 13:34] VITALS: BP 109/67; PULSE 72; RESP 20; TEMP 37; O2SAT 98
--- NOTE | 2024-05-03 20:17 | ED.URI ---
HPI - URI/Sore Throat General Chief Complaint: Upper Respiratory Infection Stated Complaint: throat/can't talk Time Seen by Provider: 04/30/24 14:41 Source: patient, RN notes reviewed and old records reviewed Mode of arrival: ambulatory Limitations: no limitations History of Present Illness HPI Narrative: 34-year-old female to [facility] for complaint of sore throat, hoarseness, pain with swallowing and bilateral ear fullness for 4 days. Patient denies fever, headache, GI complaints, Shortness of breath, chest pain, difficulty controlling secretions, seasonal allergies. Patient endorses history of allergies to hydroxyzine, Macrobid, and shellfish. patient in mild distress from pain. Respirations even and nonlabored. Patient voice is hoarse however she is able to speak in full sentences without respiratory difficulty. Patient able to tolerate fluids by mouth. Patient in no acute distress. Related Data Home Medications Medication Instructions Recorded Confirmed sertraline 50 mg tablet (Zoloft) 50 mg PO DAILY 03/02/22 04/30/24 rssddxr-eywnhdqwbs-BKD-caffeine 30 1 cap PO Q4-6H PRN Migraine 05/27/23 04/30/24 mg-50 mg-325 mg-40 mg capsule Headache (Butalbital Compound with Codeine) cyanocobalamin (vitamin B-12) 1,000 mcg PO DAILY 05/27/23 04/30/24 1,000 mcg tablet ergocalciferol (vitamin D2) 1,250 1,250 mcg PO WEEKLY 05/27/23 04/30/24 mcg (50,000 unit) capsule Allergies Allergy/AdvReac Type Severity Reaction Status Date / Time hydroxyzine Allergy Unknown Other Verified 04/30/24 13:55 nitrofurantoin Allergy Unknown hives Verified 04/30/24 13:55 shellfish derived Allergy Unknown Rash Verified 04/30/24 13:55 Review of Systems Review of Systems: All systems reviewed & are unremarkable except as noted in HPI and below Constitutional: Constitutional: Reports no additional constitutional complaints Eyes: Eyes: Reports no additional eye complaints ENT: Reports system reviewed and no additional complaints, except as documented Cardiovascular: Cardiovascular: Reports no additional cardiovascular complaints, Denies chest pain and Denies dyspnea Respiratory: Respiratory: Reports no additional respiratory complaints, Denies cough and Denies dyspnea Musculoskeletal: Musculoskeletal: Reports no additional musculoskeletal complaints Neurologic: Reports system reviewed and no additional complaints, except as documented Psychiatric: Psychiatric: Reports no additional psychiatric complaints PMFSH Past Medical History Medical History Anxiety and depression Back pain Fracture of pelvis Hx of migraines Surgical History Surgical History H/O tubal ligation History of cholecystectomy Social History Social History Smoking packs per day: 0.5 Smoking cigarettes per day: 10.0 Years smoked: 21 Smoking pack-years: 10.50 Smoking status: Current every day smoker Tobacco type: cigarettes Alcohol intake: current Alcohol use details: social Substance use type: marijuana Last use: social Living arrangements: with family Gender identity (if verbalized by the patient): Female Comments At the time of my signature, I reviewed and agree with the nursing past medical, surgical, social, and family history. There is no relevant family history pertinent to the patient complaint. Exam Const: General: cooperative, healthy appearing, comfortable, no acute distress, alert and well nourished Nutritional Appearance: well nourished Orientation/consciousness: patient oriented x3 Limitations: no limitations HENMT: Head: normal to inspection Ears: external ears normal Face/Nose/Sinus: Normal external nose present, Normal nares present, normal facial exam, No erythema and No edema Face and sinus: normal facial exam, no erythema and no
== END 2024-04-30 15:00 | disposition home or self-care (01) ==
PROVIDERS: Emergency Provider Nurse Practitioner Family; PCP Family Medicine
DX: H66.93 Otitis media, unspecified, bilateral (principal); F17.210 Nicotine dependence, cigarettes, uncomplicated; F41.9 Anxiety disorder, unspecified; F32.A Depression, unspecified
CPT/HCPCS: 36416; 86308; 87081; 87880; 99213; G0463

== ENCOUNTER 2024-05-25 12:27 | Emergency (ER) | payer OTHER, SELFPAY ==
--- NOTE | ~2024-05-25 | XR_ITS ---
EXAMINATION: XR knee RT 3V DATE: 05/25/2024 13:21 INDICATION: Right knee pain. TECHNIQUE: 3 views of right knee were obtained. COMPARISON: Right knee radiographs 05/04/2019 FINDINGS: Bone alignment is normal. No fracture. There is mild osteoarthritis of lateral and patellof emoral compartments. There is a small knee joint effusion. IMPRESSION: 1. Mild right knee osteoarthritis. 2. Small right knee joint effusion. Reviewed, dictated and finalized at [facility].
[2024-05-25 12:39] VITALS: BP 122/70; PULSE 84; RESP 18; TEMP 36.5; O2SAT 99
--- NOTE | 2024-05-25 13:07 | ED.LOWEXIN ---
HPI - Extremity Injury (Lower) General Chief Complaint: Extremity Injury, Lower Stated Complaint: Right Knee Pain Time Seen by Provider: 05/25/24 13:07 Source: patient, RN notes reviewed and old records reviewed Mode of arrival: ambulatory Limitations: no limitations History of Present Illness HPI Narrative: 34 year old [facility] complaints of right knee pain since Monday with no known injury reported. Patient reports that she has discomfort behind her knee and to lateral region of knee when she bends her knee.Patient reports that her calf area hurts when trying to sleep, no redness or warmth to calf area. Patient reports that pain is increased with ambulation, bending and standing.Patient reports that she has taken OTC Ibuprofen for her discomfort. MD complaint: other (knee pain) Onset (ago): day(s) (6) Severity scale (1-10): 5 Treatments prior to arrival: NSAIDS Related Data Home Medications Medication Instructions Recorded Confirmed sertraline 50 mg tablet (Zoloft) 50 mg PO DAILY 03/02/22 04/30/24 cyanocobalamin (vitamin B-12) 1,000 mcg PO DAILY 05/27/23 04/30/24 1,000 mcg tablet ergocalciferol (vitamin D2) 1,250 1,250 mcg PO WEEKLY 05/27/23 04/30/24 mcg (50,000 unit) capsule Allergies Allergy/AdvReac Type Severity Reaction Status Date / Time hydroxyzine Allergy Unknown Other Verified 05/25/24 12:33 nitrofurantoin Allergy Unknown hives Verified 05/25/24 12:33 shellfish derived Allergy Unknown Rash Verified 05/25/24 12:33 Review of Systems Review of Systems: CONSTITUTIONAL: Denies fever, chills, or sweats. EYES: Denies visual changes, redness, or discharge. ENT: Denies rhinorrhea, congestion, sore throat, or otalgia. CARDIOVASCULAR: Denies chest pain, palpitations, or edema. RESPIRATORY: Denies cough or dyspnea. GASTROINTESTINAL: Denies abdominal pain, nausea, vomiting, or diarrhea. GENITOURINARY: Denies dysuria or hematuria. SKIN: Denies rash or itching. MUSCULOSKELETAL: Denies back pain,positive pain to right knee joint or myalgia. NEUROLOGIC: Denies headache, numbness, or weakness. PSYCHIATRIC: Reports history of anxiety or depression. All systems reviewed & are unremarkable except as noted in HPI and below PMFSH Past Medical History Medical History Anxiety and depression Back pain Fracture of pelvis Fracture of right ankle Hx of migraines Surgical History Surgical History H/O tubal ligation History of cholecystectomy Social History Social History Smoking packs per day: 0.5 Smoking cigarettes per day: 10.0 Years smoked: 21 Smoking pack-years: 10.50 Smoking status: Current every day smoker Tobacco type: cigarettes Alcohol intake: current Alcohol use details: social Substance use type: marijuana Last use: social Living arrangements: with family Gender identity (if verbalized by the patient): Female Comments At time of signature, agree with nursing past medical, surgical, social and family history. There is no relevant family history pertinent to the presenting complaint Exam Narrative: GENERAL: Well-appearing, well-nourished, and in no acute distress. HEAD: Normocephalic, atraumatic. EYES: PERRLA and EOMI. ENT: Nares clear, no rhinorrhea or epistaxis. Mucous membranes moist. NECK: Supple. no lymphadenopathy CHEST: Clear to auscultation. No respiratory distress.SAO2 99% on room air HEART: Regular rate and rhythm. No murmur heard. Normal peripheral pulses. ABDOMEN: Soft, nontender, nondistended, normal active bowel sounds. EXTREMITIES: Normal range of motion. No edema.Exception noted to right knee pain with some palpable swelling noted to knee, pain to back of knee and to lateral aspect when bending. patient has strong pedal pulse right foot, reports no tingling or numbness. Pat
== END 2024-05-25 13:50 | disposition home or self-care (01) ==
PROVIDERS: Emergency Provider Registered Nurse; PCP Family Medicine
DX: M25.561 Pain in right knee (principal); M25.461 Effusion, right knee; F17.210 Nicotine dependence, cigarettes, uncomplicated; F12.90 Cannabis use, unspecified, uncomplicated
CPT/HCPCS: 73562; 99213; G0463

== ENCOUNTER 2025-03-04 09:55 | Emergency (ER) | payer OTHER, SELFPAY ==
[2025-03-04 10:04] VITALS: BP 122/64; PULSE 72; RESP 20; TEMP 36.6; O2SAT 97
--- OUTSIDE RECORDS SUMMARY | 2025-03-04 10:39 | XMS_ITS | Patient Health Record ---
Author Organization [facility] Address [address] [place] [address] Care Team Providers Care Business Analysis Specialist Name Role Phone Abhi Valentin Primary Care Provider GuardadoScottmadison Stephenson [phone] Allergies Allergen (clinical drug ingredient) Drug/Non Drug Allergy documented on EMR Reaction Allergy Type Onset Date Status nitrofurantoin, macrocrystals / nitrofurantoin, monohydrate Macrobid Unknown Drug Allergy Active Reason For Referral No Information Medications Medication SIG (Take, Route, Frequency, Duration) Notes Start Date End Date Status Shwidxjcjz-PPCE-Blprqieh 50-325-40 MG 1 capsule as needed Orally every 4 hrs Active cloNIDine HCl 0.1 MG 1 TABLET THREE TIMES A DAY for 30 days As needed ANXIETY Active Qulipta 30 MG 1 tablet Orally Once a day Active Sertraline HCl 50 MG TAKE 1 TABLET BY [facility] EVERY DAY FOR 30 DAYS for 90 Active Zoloft 50 MG 1 tablet Orally Once a day for 30 days Active Vitamin D (Ergocalciferol) 1.25 MG (76882 UT) 1 capsule Orally once a week Active Vitamin B Complex - as directed Orally Active Social History Tobacco Use: Social History Observation Description Date Details (start date - stop date) Current Smoker NA - NA Dont use, Tobacco Use/Smoking Question Answer Notes Are you a current smoker How often do you smoke cigarettes? every day How many cigarettes a day do you smoke? 6-10 Tobacco Control (Standard) Question Answer Notes Tobacco use: Current smoker How often do you smoke cigarettes? Every day How many cigarettes a day do you smoke? 6-10 Section Notes: PRESCRIPTION # FILLED WRITTEN DRUG LABEL QTY DAYS STRENGTH MME PRESCRIBER PHARMACY REFILL NO. REFILLS STATE 11/05/2023 05/03/2023 Acetaminophen 325 Mg / Caffeine 40 Mg Oral Tablet/ Butalbital 50 Mg 15.0 3 40.0 MG/50.0 MG/325.0 MG NA Sidney Jensen - [id number] [facility], [place], [place] NA 2 [place] 1 [id number] 06/01/2023 06/01/2023 ACETAMINOPHEN 325 MG / HYDROcodone BITARTRATE 5 MG ORAL TABLET 20.0 7 5.0 MG/325.0 MG 14.29 Henrik Dhaliwal Md - [id number] [facility], [place], [place] NA 0 [place] 1 [id number] 05/30/2023 05/28/2023 ACETAMINOPHEN 325 MG / HYDROcodone BITARTRATE 5 MG ORAL TABLET 6.0 2 5.0 MG/3 Discussed smoking cessation Discussed smoking cessation Discussed smoking cessation Discussed smoking cessation Discussed smoking cessation Discussed smoking cessation Discussed smoking cessation Discussed smoking cessation Discussed smoking cessation Discussed smoking cessation Discussed smoking cessation Discussed smoking cessation Discussed smoking cessation Discussed smoking cessation Discussed smoking cessation Discussed smoking cessation Discussed smoking cessation Discussed smoking cessation Discussed smoking cessation Discussed smoking cessation Discussed smoking cessation Discussed smoking cessation Discussed smoking cessation Discussed smoking cessation Discussed smoking cessation Discussed smoking cessation Discussed smoking cessation Discussed smoking cessation PRESCRIPTION # FILLED WRITTEN DRUG LABEL QTY DAYS STRENGTH MEDD PRESCRIBER PHARMACY REFILL NO. REFILLS STATE 05/09/2022 05/09/2022 HYDROcodone BIT/ACETAMINOPHEN 12.0 3 325 MG-5 MG 20 Scott Gamboa Dmd - [id number] [facility], [place], [place] NA 0 [place] 1 [id number] 03/27/2022 03/27/2022 HYDROcodone BIT/ACETAMINOPHEN 15.0 4 325 MG-5 MG 18.7 Discussed smoking cessation REviewed PDMP Discussed smoking cessation REviewed PDMP PRESCRIPTION # FILLED WRITTEN DRUG LABEL QTY DAYS STRENGTH MME PRESCRIBER PHARMACY REFILL NO. REFILLS STATE 03/27/2023 03/27/2023 diazePAM 2.0 1 10 MG NA Scott Gamboa Dmd - [id number] [facility], [place], [place] NA 0 [place] 1 [id number] 05/09/2022 05/09/2022 HYDROcodone BIT/ACETAMINOPHEN 12.0 3 325 MG-5 MG 20 Scott Gamboa Dejon - [id number] [facility], [place], [place] NA 0 [place] 1 [id number] 03/27/2022 03/27/2022 HYDROcodone BIT/ACETAMINOPHEN 15.0 4 325 MG-5 MG 18.75 Patrick Grimaldo Md - [id number] [facility], [place], [place] NA 0 [place] 1 [id number] 03/04/2022 03/04/2022 traMADol 20.0 5 50 MG 20 Lorenzo Valentine m ( PRESCRIPTION # FILLED WRITTEN DRUG LABEL QTY DAYS STRENGTH MME PRESCRIBER PHARMACY REFILL NO. REFILLS STATE 06/01/2023 06/01/2023 HYDROcodone/ACETAMINOPHEN 20.0 7 325 MG-5 MG 14.29 Henrik Dhaliwal Md - [id number] [facility] [place], [place] NA 0 [place] 1 [id number] 05/30/2023 05/28/2023 HYDROcodone/ACETAMINOPHEN 6.0 2 325 MG-5 MG 15 Vincent Beltran - [id number] [facility] [place], [place] NA 0 [place] 1 [id number] 05/15/2023 05/15/2023 HYDROcodone/ACETAMINOPHEN 12.0 3 325 MG-5 MG 20 Cooper Candelaria PRESCRIPTION # FILLED WRITTEN DRUG LABEL QTY DAYS STRENGTH MME PRESCRIBER PHARMACY REFILL NO. REFILLS STATE 06/01/2023 06/01/2023 ACETAMINOPHEN 325 MG / HYDROcodone BITARTRATE 5 MG ORAL TABLET 20.0 7 325 MG-5 MG 14.29 Henrik Dhaliwal Md - [id number] [facility] [place], [place] NA 0 [place] 1 [id number] 05/30/2023 05/28/2023 ACETAMINOPHEN 325 MG / HYDROcodone BITARTRATE 5 MG ORAL TABLET 6.0 2 325 MG-5 MG 15 Vincent Beltran - [id number] [facility] [place], [place] NA 0 [place] 1 [id number] 05/15/2023 05/15/2023 ACETAMINOPHEN 325 MG / HYDROcodone BITARTRATE 5 MG ORAL TABLET 12.0 3 325 M PRESCRIPTION # FILLED WRITTEN DRUG LABEL QTY DAYS STRENGTH MME PRESCRIBER PHARMACY REFILL NO. REFILLS STATE 06/01/2023 06/01/2023 ACETAMINOPHEN 325 MG / HYDROcodone BITARTRATE 5 MG ORAL TABLET 20.0 7 5.0 MG/325.0 MG 14.29 Henrik Dhaliwal Md - [id number] [facility] [place], [place] NA 0 [place] 1 [id number] 05/30/2023 05/28/2023 ACETAMINOPHEN 325 MG / HYDROcodone BITARTRATE 5 MG ORAL TABLET 6.0 2 5.0 MG/325.0 MG 15 Vincent Beltran - [id number] [facility] [place], [place] NA 0 [place] 1 [id number] 05/15/2023 05/15/2023 ACETAMINOPHEN 325 MG / HYDROcodone BITARTRATE 5 MG ORAL TABLET 12.0 3 5.0 MG/325.0 MG 20 Scott Gamboa [facility] - [id number] [facility] [place], [place] NA 0 [place] 1 [id number] 05/03/2023 05/03/2023 Acetaminophen 325 Mg / Caffeine 40 Mg Oral Tablet/ Butalbital 50 Mg 15.0 3 40.0 PRESCRIPTION # FILLED WRITTEN DRUG LABEL QTY DAYS STRENGTH MME PRESCRIBER PHARMACY REFILL NO. REFILLS STATE 11/05/2023 05/03/2023 Acetaminophen 325 Mg / Caffeine 40 Mg Oral Tablet/ Butalbital 50 Mg 15.0 3 40.0 MG/50.0 MG/325.0 MG NA Sidney Jensen - [id number] [facility], [place], [place] NA 2 [place] 1 [id number] 06/01/2023 06/01/2023 ACETAMINOPHEN 325 MG / HYDROcodone BITARTRATE 5 MG ORAL TABLET 20.0 7 5.0 MG/325.0 MG 14.29 Henrik Dhaliwal Md - [id number] [facility] [place] 0 [place] 1 [id number] 05/30/2023 05/28/2023 ACETAMINOPHEN 325 MG / HYDROcodone BITARTRATE 5 MG ORAL TABLET 6.0 2 5.0 MG/3 Problems Problem Type SNOMED Code ICD Code Onset Dates Problem Status W/U Status Risk Notes Problem 94287048 Anxiety (F41.9) Active confirmed Problem 36936536 BOYD (generalized anxiety disorder) (F41.1) Active confirmed Problem Adjustment disorder (74880981) Adjustment disorder (F43.20) Active confirmed Problem Obstructive sleep apnea syndrome (06595460) Sleep apnea in adult (G47.33) Active confirmed Problem 92914086 Major depression in remission (F32.5) 6 Active confirmed Vital Signs Heart Rate 86 /min 07/31/2024 Respiratory Rate 16 /min 07/31/2024 Blood pressure diastolic 72 mm Hg 07/31/2024 Oximetry 98 % 07/31/2024 Height 68 in 07/31/2024 Blood pressure systolic 124 mm Hg 07/31/2024 Weight 239 lbs 07/31/2024 BMI 36.34 kg/m2 07/31/2024 Encounters Encounter Location Date Provider Diagnosis [address] [address] 07/31/2024 Abhi Valentin Performance anxiety F41.9 ; Anxiety F41.9 and Sleep apnea in adult G47.[address] [address] 07/08/2024 Abhi Valentin Assessments Encounter Date Diagnosis (ICD Code) Assessment Notes Treatment Notes Treatment Clinical Notes Section Notes 07/31/2024 Anxiety (ICD-10 - F41.9) 07/31/2024 Performance anxiety (ICD-10 - F41.9) 07/31/2024 Sleep apnea in adult (ICD-10 - G47.33) PREFERS TO DISCUSS FURTHER WITH HER EYEGLASS INSPECTOR. GAVE HER THE EPWORTH SCORE OF 15 TO PASS ALONG. 07/31/2024 Other NELIA SIGNED FOR LABS FROM 03/2024 BY [facility] [place] Plan Of Treatment No Information Insurance Providers Payer Name Payer Address Payer Phone Subscriber Number Group Number Insured Name Patient Relationship to Insured Coverage Start Date Coverage End Date [address] [phone] [id number] Brittany Gerber Self - patient is the insured 5 2 [facility] Attn Claims Department [address] [place] [address] [id number] Brittany Gerber Self - patient is the insured 3 [employer] [address] [place] [phone] [id number] Brittany Gerber Self - patient is the insured 0 2 [employer] [address] [place] [phone] [id number] Brittany Gerber Self - patient is the insured 2 2 [employer] [facility] Claims Department [address] [place] [address] [id number] Brittany Gerber Self - patient is the insured 3 Medical (General) History Medical History History ICD Code kidney issue several years ago Migraine G43.909 Surgical History Surgery Date(Month/Year) tubal ligation, gall bladder removal cyst removal from hand Hospitalization History Reason Date(Month/Year) inpatient at [facility] 06/03
--- OUTSIDE RECORDS SUMMARY | 2025-03-04 10:39 | XMS_ITS ---
Author Organization [facility] Address [address] [place] [address] Care Team Providers Care Well Tester Name Role Phone Abhi Valentin Primary Care Provider Mckenzie Guardado Unavailable [phone] Kyleigh Quick Unavailable [phone] REASON FOR VISIT 2 Month Psych F/U & Med Refill Encounters Encounter Location Date Provider Diagnosis [address] [address] 01/24/2024 Kyleigh Quick Plan Of Treatment No Information Progress Notes * Ajit DUTTAmaríaDOB:[birth year] (34 yo F)Acc No.[id number]:01/24/2024 UNLOCKED PROGRESS NOTE Patient: Brittany DE LA TORRE Provider: TOMY Kent, BEEF BONER-BC, PMHNP-BC :1990 A ge:33 Y S ex:Female Date:01/24/2024 [facility] Pcp:Abhi Valentin Subjective: * Chief Complaints: * 1 . 2 Month Psych F/U & Med Refill. * Medical History: Objective: * Vitals: Assessment: Plan: * Treatment: * * Electronic signature of Kyleigh Quick , [id number] on 03/04/2025 at 10:38 AM CDT Sign off status: Pending * Provider: Dennise Quick, MSN, BEEF BONER-BC, PMHNP-BC Date: 0 01/24/2024 Generated for Annel aguilera/Pauline/June on: 0 03/04/2025 10:38 AM CDT
--- OUTSIDE RECORDS SUMMARY | 2025-03-04 10:39 | XMS_ITS ---
Author Organization [facility] Address [address] [place] [address] Care Team Providers Care Section Hand Name Role Phone Abhi Valentin Primary Care Provider Geo Mckenziemadison Stephenson [phone] Allergies Allergen (clinical drug ingredient) Drug/Non Drug Allergy documented on EMR Reaction Allergy Type Onset Date Status nitrofurantoin, macrocrystals / nitrofurantoin, monohydrate Macrobid Unknown Drug Allergy Active REASON FOR VISIT transfer from . last seen 11/2023 Medications Medication SIG (Take, Route, Frequency, Duration) Notes Start Date End Date Status Dnigrmogtm-ZRJS-Tkxtsqyb 50-325-40 MG 1 capsule as needed Orally every 4 hrs Active cloNIDine HCl 0.1 MG 1 TABLET THREE TIMES A DAY for 30 days As needed ANXIETY Active Qulipta 30 MG 1 tablet Orally Once a day Active Sertraline HCl 50 MG TAKE 1 TABLET BY [facility] EVERY DAY FOR 30 DAYS for 90 Active Zoloft 50 MG 1 tablet Orally Once a day for 30 days Active Vitamin D (Ergocalciferol) 1.25 MG (38277 UT) 1 capsule Orally once a week Active Vitamin B Complex - as directed Orally Active Social History Tobacco Use: Social History Observation Description Date Details (start date - stop date) Current Smoker NA - NA Tobacco Control (Standard) Question Answer Notes Tobacco [...] MG/50.0 MG/325.0 MG NA Sidney Jensen - [id number] [facility], [place], [place] NA 2 [place] 1 [id number] 06/01/2023 06/01/2023 ACETAMINOPHEN 325 MG / HYDROcodone BITARTRATE 5 MG ORAL TABLET 20.0 7 5.0 MG/325.0 MG 14.29 Henrik Dhaliwal Md - [id number] [facility] [place], [place] NA 0 [place] 1 [id number] 05/30/2023 05/28/2023 ACETAMINOPHEN 325 MG / HYDROcodone BITARTRATE 5 MG ORAL TABLET 6.0 2 5.0 MG/3 Problems Problem Type SNOMED Code ICD Code Onset Dates Problem Status W/U Status Risk Notes Problem Obstructive sleep apnea syndrome (52994111) Sleep apnea in adult (G47.33) Active confirmed Vital Signs Weight 239 lbs 07/31/2024 Respiratory Rate 16 /min 07/31/2024 Blood pressure systolic 124 mm Hg 07/31/20 24 Blood pressure diastolic 72 mm Hg 024 Heart Rate 86 /min 07/31/2024 Oximetry 98 % 07/31/2024 Height 68 in 07/31/2024 BMI 36.34 kg/m2 07/31/2024 Encounters Encounter Location Date Provider Diagnosis [address] [place] [address] 07/31/2024 Abhi Valentin Performance anxiety F41.9 ; Anxiety F41.9 and Sleep apnea in adult G47.33 Assessments Encounter Date Diagnosis (ICD Code) Assessment Notes Treatment Notes Treatment Clinical Notes Section Notes 07/31/2024 Performance anxiety (ICD-10 - F41.9) 07/31/2024 Anxiety (ICD-10 - F41.9) 07/31/2024 Sleep apnea in adult (ICD-10 - G47.33) PREFERS TO DISCUSS FURTHER WITH HER DIRECTOR CLINICAL OPERATIONS. GAVE HER THE EPWORTH SCORE OF 15 TO PASS ALONG. 07/31/2024 Other NELIA SIGNED FOR LABS FROM 03/2024 BY [facility] [place] Plan Of Treatment Medication Medication Name Sig Start Date Stop Date Notes cloNIDine HCl 0.1 MG 1 TABLET THREE TIME S A DAY for 30 days cloNIDine HCl 0.1 MG 1 tablet Orally twi ce a day PRN for anxiety Zoloft 50 MG 1 tablet Orally Once a day for 30 days Next Appt Details Follow Up: 6 Months, Reason: F/U ANXIETY Progress Notes * Brittany DUTTADOB:[birth year] (34 yo F)Acc No.[id number]:07/31/2024 Progress Notes Patient: Brittany DE LA TORRE Provider: All Valentin :1990 A ge:34 Y S ex:Female Date:07/31/2024 [facility] Subjective: * Chief Complaints: * t jagjit from . last seen 11/2023 * HPI: D epression Screening: PHQ-9 L ittle interest or pleasure in doing things?Several days F eeling down, depressed, or hopeless N ot at all T rouble falling or staying asleep, or sleeping too much M ore than half the days F eeling tired or having little energy N ot at all P oor appetite or overeating M ore than half the days F eeling bad about yourself or that you are a failure, or have let yourself or your family down N ot at all T rouble concentrating on things, such as reading the newspaper or watching television N ot at all M oving or speaking so slowly that other people could have noticed; or the opposite, being so fidgety or restless that you have been moving around a lot more than usual N ot at all T houghts that you would be better off or of hurting yourself in some way N ot at all T otal Score 5 I nterpretation M ild Depression S creening: [place] Suicide Severity Rating Scale (LF) D o you want to initiate with S creener form 1 . Wish to be : Have you wished you were or wished you could go to sleep and not wake up? N o 2 . Suicidal Thoughts: Have you actually had any thoughts of killing yourself? N o 6 . Suicide Behaviour: Have you ever done anything,started to do anything, or prepared to end your life? N o I nterpretation: L ow Risk C SSRS Interpretation and Follow Up Plan: CSSRS Interpretation and Follow Up Plan. CSSRS Interpretation and Follow Up Plan C SSRS Screen documented using SF Y es M oderate or High risk requires selection of a follow up plan C SSRS No/Low: intervention not needed at this time I nterim History: F/U FOR ANXIETY DOING WELL WITH CLONIDINE AND ZOLOFT. TIRED ALL THE TIME. IN BED AT 9 UP BY 4:30. TIRED IN AM. NOCTURIA 2-3 TIMES. SIG OTHER SAYS SHE SNORES LOUDLY. NO OBSERVED. DOZES OFF EASILY. SITTING QUIETYLY, LYING DOWN, GETS LABS EVERY [address] AMADOR AT [facility] [place]. LAST LABS 03/21/2024. E pworth Sleepiness Scale - Likelihood of dozing/falling asleep while:: SCORE 15. Sitting and reading? 3 - high chance of dozing. Watching TV? 3 - High chance of dozing. Sitting, inactive in a public place 3 - High chance of dozing. As a passenger in a car for an hour with no break? 0 - Would never doze. Lying down to rest in the afternoon when able? 3 - High chance of dozing. Sitting and talking to someone? 0 - Would never doze. Sitting quietly after a lunch without alcohol? 3 - High chance of dozing. In a car, while stopped for a few minutes in traffic? 0 - Would never doze.. * ROS: B asic ROS: Admits F kelvin. * Medical History: * Surgical History: t ubal ligation, gall bladder removal cyst removal from hand * Hospitalization/Major Diagno stic Procedure: i npatient at [facility] 06/03 * Family History: F ather: alive. M other: alive. 2 sister(s) - healthy. 1 son(s) , 1 daughter(s) - healthy. . * Social History: P rimary Social History: L iving Arrangement L iving Arrangement: D ependent Living L iving with: Dorota randparent(s) Alcohol Use A lcohol Use Frequency: M onthly or less Illicit Substance Usage I llicit Substance Usage: Y es I nterested in quitting: N o S ubstance Used: s elf medicating with marijuana since stopping medications Employment Status E mployment Status: U nemployed T obacco Use: T obacco Control (Standard) T obacco use: C urrent smoker H ow often do you smoke cigarettes? E very day H ow many cigarettes a day do you smoke? 6 -10 P RESCRIPTION # FILLED WRITTEN DRUG LABEL QTY DAYS STRENGTH MME PRESCRIBER PHARMACY REFILL NO. REFILLS STATE 11/05/2023 05/03/2023 Acetaminophen 325 Mg / Caffeine 40 Mg Oral Tablet/ Butalbital 50 Mg 15.0 3 40.0 MG/50.0 MG/325.0 MG NA Paulainessa Jensen - [id number] [facility] [place], [place] NA 2 [place] 1 [id number] 06/01/2023 06/01/2023 ACETAMINOPHEN 325 MG / HYDROcodone BITARTRATE 5 MG ORAL TABLET 20.0 7 5.0 MG/325.0 MG 14.29 Henrik Dhaliwal Md - [id number] [facility] [place], [place] NA 0 [place] 1 [id number] 05/30/2023 05/28/2023 ACETAMINOPHEN 325 MG / HYDROcodone BITARTRATE 5 MG ORAL TABLET 6.0 2 5.0 MG/3. * Medications: T ztivyHlyifmnrht-UNYB-Kchudllw 50-325-40 MG Capsule 1 capsule as needed Orally every 4 hrs Qulipta 30 MG Tablet 1 tablet Orally Once a day Vitamin D (Ergocalciferol) 1.25 MG (18782 UT) Capsule 1 capsule Orally once a week Vitamin B Complex - Tablet as directed Orally cloNIDine HCl 0.1 MG Tablet TAKE 1 TABLET BY MOUTH TWICE A DAY NEEDED FOR ANXIETY Zoloft 50 MG Tablet 1 tablet Orally Once a day cloNIDine HCl 0.1 MG Tablet 1 tablet Orally twice a day PRN for anxiety Sertraline HCl 50 MG Tablet TAKE 1 TABLET BY MOUTH EVERY DAY FOR 30 DAYS Taking Uagpgabtdk-MGMO-Odvgruia 50-325-40 MG Capsule 1 capsule as needed Orally every 4 hrs Taking Qulipta 30 MG Tablet 1 tablet Orally Once a day Taking Vitamin D (Ergocalciferol) 1.25 MG (73528 UT) Capsule 1 capsule Orally once a week Taking Vitamin B Complex - Tablet as directed Orally Taking cloNIDine HCl 0.1 MG Tablet TAKE 1 TABLET BY MOUTH TWICE A DAY NEEDED FOR ANXIETY Taking Zoloft 50 MG Tablet 1 tablet Orally Once a day Taking cloNIDine HCl 0.1 MG Tablet 1 tablet Orally twice a day PRN for anxiety Taking Sertraline HCl 50 MG Tablet TAKE 1 TABLET BY MOUTH EVERY DAY FOR 30 DAYS * Allergies: Manuel lyman[Allergies Verified] Objective: * Vitals: W t:239, Ht:68, BMI:36.34, BP:124/72, HR:86, Oxygen sat %:98, RR:16, LMP:07/2024, Pain scale:8. * Examination: G eneral Examination: GENERAL APPEARANCE: w ell developed, well nourished, in no acute distress. Assessment: * Assessment: 1. A nxiety - F41.9 (Primary) 2 . P erformance anxiety - F41.9 ?3. S leep apnea in adult - G47.33 Plan: * Treatment: 2. P erformance anxiety Refill cloNIDine HCl Tablet, 0.1 MG, 1 TABLET THREE TIMES A DAY As needed ANXIETY, 30 days, 90, Refills 5. 3. S leep apnea in adult Clinical Notes: PREFERS TO DISCUSS FURTHER WITH HER DIRECTOR CLINICAL OPERATIONS. GAVE HER THE EPWORTH SCORE OF 15 TO PASS ALONG. 4. O thers Clinical Notes: NELIA SIGNED FOR LABS FROM 03/2024 BY [facility] [place] * Recommended Wellness and Pre vention Guidelines: * S tatus A lert L ast Done N ext Due A ction Taken N ONCOMPLIANT C ervical cancer screening 0 08/02/2019 0 07/31/2024 - N ONCOMPLIANT H IV screening - 0 07/31/2024 - * Procedure Codes: 3 008F BODY MASS INDEX [id number] MEDICAL NUTRITION, INDIV, [id number] BEHAV CHNG SMOKING 3-10 MIN * Preventive Medicine: Counseling: C are goal follow-up plan: BMI management provided Y es Above Normal BMI Follow-up L ifestyle education regarding diet S MOKING: Patient counselled on the dangers of tobacco use and urged to quit. . * Follow Up: 6 Months (Reason: F/U ANXIETY) * * Sign off status: Completed true * Provider: All Valentin Date: 0 07/31/2024 Generated for Annel aguilera/Pauline/June on: 0 03/04/2025 10:39 AM CDT History and Physical Notes * HPI (History of Present Illness) Category Sub-Category Detail Notes Category Not es Depression Screening PHQ-9 Little inte rest or pleasure in doing things: Several days Feeling down, depressed, or hopeless: No t at all Trouble falling or staying a sleep, or sleeping too much: More than half the days Feeling tired or having little energy: N ot at all Poor appetite or overeating: More than h marion the days Feeling bad about yourself o r that you are a failure, or have let yourself or your family down: Not at all Trouble concentrating on thi ngs, such as reading the newspaper or watching television: Not at all Moving or speaking so slowly that other people could have noticed; or the opposite, being so fidgety or restless that you have been moving around a lot more than usual: Not at all Thoughts that you would be b kasie off or of hurting yourself in some way: Not at all Total Score: 5 Interpretation: Mild Depression Zephyr Sleepiness Scale - L ikelihood of dozing/falling asleep while: Sitting and reading? 3- high chance of dozing Watching TV? 3- High chance of do zing Sitting, inactive in a public place 3- H igh chance of dozing As a passenger in a car for an hour with no break? 0- Would never doze Lying down to rest in the afternoon when able? 3- High chance of dozing Sitting and talking to someone? 0- Would never doze Sitting quietly after a lunch without al cohol? 3- High chance of dozing In a car, while stopped for a few minute s in traffic? 0- Would never doze. Screening [place] Suicide Sev erity Rating Scale (LF) Do you want to initiate with: Screener form 1. Wish to be : Have you wished you were or wished you could go to sleep and not wake up?: No 2. Suicidal Thoughts: Have you actually had any thoughts of killing yourself?: No 6. Suicide Behavior Question: Have you ever done anything,started to do anything, or prepared to end your life?: No Interpretation:: Low Risk Do Not Use CSSRS Interpretation and Follow Up Plan CSSRS Interpretation and Follow Up Plan CSSRS Screen documented using SF: Yes Moderate or High risk requir es selection of a follow up plan: CSSRS No/Low: intervention not needed at this time Examination Category Sub-Category Detail Notes Category Not es General Examination GENERAL APPEARANCE: well dev eloped, well nourished, in no acute distress
--- OUTSIDE RECORDS SUMMARY | 2025-03-04 10:39 | XMS_ITS ---
Author Organization [facility] Address [address] [place] [address] Care Team Providers Care Grinder Set Up Operator Gear Tool Name Role Phone Abhi Valentin Primary Care Provider Mckenzie Guardado [phone] REASON FOR VISIT change in providers Encounters Encounter Location Date Provider Diagnosis [address] [place] [address] 07/08/2024 Abhi Valentin Plan Of Treatment No Information Progress Notes * Brittany DUTTADOB:[birth year] (34 yo F)Acc No.[id number]:07/08/2024 Patient: Marina NINOBrittany [place] :1990 A ge:34 Y S ex:Female Address:[facility] [place], [address] * true * Date: Generated for Printi ng/Fadiogenesg/eTransmitting on: 0 03/04/2025 10:39 AM CDT
--- NOTE | 2025-03-04 11:02 | ED_ITS ---
HPI - Eye Problem General Chief complaint: Eye Problems Stated complaint: Poss pink eye Time Seen by Provider: 03/04/25 10:50 Source: patient, RN notes reviewed and old records reviewed Mode of arrival: ambulatory Limitations: no limitations History of Present Illness HPI Narrative: 34 year old female who presents to [facility] with complaints of left eye pain redness and itching which started this morning. Patient reports that her left eye is painful but denies any injury to her eye. Patient reports no crusting or mucoid drainage from eye, increased watering noted. no swelling of eyelids noted. Patient reports no visual changes.Patient reports that she needs work note for today. MD chief complaint: eye pain, eye redness and other (itching) Onset (ago): day(s) (this morning) Onset description: awoke with symptoms Location: left eye Eye Symptoms: redness, pain and itching Severity: moderate Treatments Prior to Arrival: none Related Data Home Medications ?Medication ?Instructions ?Recorded ?Confirmed ?Last Taken ?Type sertraline 50 mg tablet (Zoloft) 50 mg PO DAILY 03/02/22 04/30/24 Unknown History clonidine 03/04/25 03/04/25 Unknown History clonidine HCl 0.1 mg tablet mg 03/04/25 Unknown History Allergies Allergy/AdvReac Type Severity Reaction Status Date / Time hydroxyzine Allergy Unknown Other Verified 03/04/25 10:13 nitrofurantoin Allergy Unknown hives Verified 03/04/25 10:13 shellfish derived Allergy Unknown Rash Verified 03/04/25 10:13 Review of Systems Review of Systems: CONSTITUTIONAL: Denies fever, chills, or sweats. EYES: Denies visual changes. Reports redness, pain, left eye with itching.reports no injury to her left eye ENT: Denies rhinorrhea, congestion, sore throat, or otalgia. CARDIOVASCULAR: Denies chest pain, palpitations, or edema. RESPIRATORY: Denies cough or dyspnea. SKIN: Denies rash or itching. NEUROLOGIC: Denies headache All systems reviewed & are unremarkable except as noted in HPI and below PMFSH Past Medical History Medical History Fracture of right ankle Fracture of pelvis Hx of migraines Back pain Anxiety and depression Surgical History Surgical History H/O tubal ligation History of cholecystectomy Social History Social History Smoking packs per day: 0.5 Smoking cigarettes per day: 10.0 Years smoked: 21 Smoking pack-years: 10.50 Smoking status: Current every day smoker Tobacco type: cigarettes Alcohol intake: current Alcohol use details: social Substance use type: marijuana Last use: social Living arrangements: with family Gender identity (if verbalized by the patient): Female Comments At time of signature, agree with nursing past medical, surgical, social and family history. There is no relevant family history pertinent to the presenting complaint Exam Narrative: GENERAL: Well-appearing, well-nourished, and in no acute distress. HEAD: Normocephalic, atraumatic. EYES: PERRLA and EOMI. Upper and lower eyelids unremarkable. No periorbital cellulitis noted. Sclera and conjunctivae injected reports pain and itching to her left eye bilateral visual acuity 20/40 without glasses.Denes any injury to left eye. increased watering noted no mucoid drainage noted. ENT: Nares clear, no rhinorrhea or epistaxis. Mucous membranes moist. NECK: Supple.no lymphadenopathy CHEST: Clear to auscultation. No respiratory distress.SAO2 97% on room air HEART: Regular rate and rhythm. No murmur heard. Normal peripheral pulses. SKIN: Warm, dry, no rash. NEURO: No focal deficits. Alert and oriented x3. Course Course Emergency Course: Patient is aware of diagnosis, understands and agrees to treatment plan. Anticipatory guidance given. Patient agrees to follow-up as directed and is aware of reasons to seek care at the emergency department. Portions of this record may have been created with voice recognition software Level of Care: Express Care Visit Vital Signs Vital signs: Vital Signs Temperature 36.6 C 03/04/25 10:04 Pulse Rate 72 03/04/25 10:04 Respiratory Rate 20 03/04/25 10:04 Blood Pressure 122/64 03/04/25 10:04 Pulse Oximetry 97 03/04/25 10:04 Oxygen Delivery Room Air 03/04/25 10:04 Temperature 36.6 C 03/04/25 10:04 Pulse Rate 72 03/04/25 10:04 Respiratory Rate 20 03/04/25 10:04 Blood Pressure 122/64 03/04/25 10:04 Pulse Oximetry 97 03/04/25 10:04 Oxygen Delivery Room Air 03/04/25 10:04 Reviewed MDM - Eye Problem MDM Narrative Medical decision making narrative: Consideration of the following conditions may be warranted for the presenting problem, they are not final diagnoses: Bacterial conjunctivitis, allergic conjunctivitis, viral conjunctivitis, foreign body, blepharitis, chalazion, hordeolum, corneal abrasion.? Exam findings show no acute concerns or changes; patient is non-toxic appearing and is in no distress.? Patient is appropriate for outpatient treatment and follow-up. Differential Diagnosis Differential diagnosis: Likely conjunctivitis, subconjunctival hemorrhage and other (left eye pain and itching) Medical Records Attestation: I reviewed the patient's medical records. Critical Care Time Critical Care Time Critical Care Time: No Discharge Plan Discharge Clinical Impression: Conjunctivitis of left eye Qualifiers: Conjunctivitis type: acute Acute conjunctivitis type: unspecified Qualified Code(s): H10.32 - Unspecified acute conjunctivitis, left eye Patient Disposition: Home Condition: Stable Instructions: Antibiotic Form, How to Use Eye Drops (ED), Conjunctivitis (ED) Additional Instructions: Cold compresses to the eyes for comfort May need warm compresses to remove debris in the morning When cleaning the eyes used a washcloth in one direction then change washcloths or use a cotton ball in one direction and then his cotton balls Eyedrops as directed--may be more soothing if left in the refrigerator Do not share medicine--do not touch the eye with the medicine Tylenol or ibuprofen for pain Avoid screen time--television, computer, tablet or phone. Also no reading or driving Follow-up with PCP or stoper as directed If your symptoms persist, change or worsen significantly before you can contact your personal physician then please, without delay, go to the emergency department for further evaluation. Follow-up with PCP in 7-10 days or sooner if needed Patient Language: [place] Prescriptions: New ofloxacin 0.3 % drops See Rx Instructions .ROUTE .COMPLEX Qty: 10 0RF Rx Instructions: put 1-2 drps into affected eye(s) every 2-4 h x 2 days, then 1-2 drps 4 times/day days 3-7 No Action (DME) clonidine 0 .ROUTE .MEDSUPPLY clonidine HCl 0.1 mg tablet sertraline [Zoloft] 50 mg Tablet 50 mg PO DAILY Follow-up/Referrals: Maria G,Fish Polk MD [Primary Care Provider] - Stand Alone Forms: Work/School Release IP Time of Disposition: 11:10 Quality Jose Coma Scale Eyes: Open Verbal: Oriented and Alert Motor: Follows Commands [place] Coma Total Score: 15
== END 2025-03-04 11:16 | disposition home or self-care (01) ==
PROVIDERS: Emergency Provider Registered Nurse; PCP Family Medicine
DX: H10.32 Unspecified acute conjunctivitis, left eye (principal); F17.210 Nicotine dependence, cigarettes, uncomplicated; F12.90 Cannabis use, unspecified, uncomplicated; F41.9 Anxiety disorder, unspecified; F32.A Depression, unspecified
CPT/HCPCS: 99213; G0463